=== PATIENT | male | born 1955 | race Caucasian/White ===

== ENCOUNTER 2020-12-04 12:54 | Emergency (ER) | payer OTHER ==
[2020-12-04] MEDS ORDERED: EPINEPHrine 1 MG/10 ML SYR IV ONE (12:55)
[2020-12-04] MEDS ORDERED: Caclcium Chloride 10% INJ SYR IV ONE (12:55)
--- OUTSIDE RECORDS SUMMARY | 2020-12-04 13:02 | XMS REPORT | Continuity of Care Document ---
:1955 Author Organization [facility] t Address [address] [place] [address] Dr. Frias [address] [place] [id number] Care Team Providers Name Role Phone Unavailable Unavailable Unavailable Problems This patient has no known problems. Allergies, Adverse Reactions, Alerts This patient has no known allergies or adverse reactions. Medications This patient has no known medications. Procedures This patient has no known procedures. Results This patient has no known results.
--- NOTE | 2020-12-04 13:14 | EDPHYS ---
Physician Documentation [facility] Name: Jaxson Keating Age: 65 yrs Sex: Male : 1955 Arrival Date: 12/04/2020 Time: 12:58 Bed 3 Private MD: ED Physician Jerrod Ku HPI: 12/04 13:13 This 65 yrs old Male presents to ER via Unassigned with complaints of CPR. jr8 13:13 Preceding the arrest, the patient collapsed. The arrest occurred in a parking lot. jr8 Pre-hospital course: The arrest was witnessed by family. Bystanders at the scene performed CPR. EMS care prior to arrival: oxygen, by BVM to assist ventilations. backboard. The patient has not experienced similar symptoms in the past. It is unknown whether or not the patient has recently seen a physician. [place]. CPR was almost immediately started by family and then taken over by a BLS unit. Patient had a ED on with BVM and IV established with fluids. No other ACLS procedures given upon arrival. EMS stated that they were able to obtain a pulse with a bradycardic rhythm for a brief period of time prior to arrival but then soon lost it. Presumptive downtime was approximately 12:16 PM.. ROS: 13:13 Unable to obtain ROS due to CPR. jr8 Exam: 13:13 Eyes: Pupils fixed and dilated. Lids and lashes normal. Conjunctiva and sclera are jr8 non-icteric and not injected. Cornea within normal limits. Periorbital areas with no swelling, redness, or edema. 13:13 MS/ Extremity: No external signs of trauma on extremities 13:13 Cardiovascular: Patient had a rate of 100 via CPR. Patient will go in between asystole and PEA. 13:13 Respiratory: Breath sounds: bronchial sounds, that are moderate, are heard diffusely. 13:13 Abdomen/GI: Inspection: obese Palpation: soft, in all quadrants. 13:13 Skin: Appearance: Color: dusky, Temperature: cool. Vital Signs: 13:00 Temp 98.6(R); Pulse Ox 90% on ETT ambu; ap3 Coby Coma Score: 13:13 Eye Response: none(1). Verbal Response: none(1). Motor Response: none(1). Modifying jr8 Factors: Intubated. Total: 3. Procedures: 13:10 Intubation: Intubated orally using # 4 Malina blade with 7.5 mm ETT. was successful jr8 on first attempt. Ventilated with Ambu bag. Cricoid pressure applied during procedure. Tube secured with ETT mccray at center of mouth measured 24 cm at lip. Placement verified by CO2 detector with (+) color change, auscultating bilateral breath sounds, O2 saturation after procedure was 100 %. Patient tolerated well. Central Line: the site was prepped with Betadine, in sterile fashion, a triple lumen catheter was inserted, in the right femoral vein, in 1 attempts. placement was verified, by blood return, the site was dressed with 4X4s, Tegaderm, foam tape, using sterile technique. MDM: 13:10 Patient medically screened. jr8 13:10 Data reviewed: vital signs, nurses notes. Counseling: I had a detailed discussion with jr8 the patient and/or guardian regarding: the historical points, exam findings, and any diagnostic results supporting the discharge/admit diagnosis. Administered Medications: 12:53 Drug: Sodium Bicarbonate 1 amp Route: IVP; Site: right hand; ap3 12:54 Drug: Calcium Chloride 10% 10 ml Route: IVP; Site: right hand; ap3 12:55 Drug: EPINEPHrine 0.1mg/mL 1:10,000 1 mg Route: IVP; Site: right hand; ap3 12:58 Drug: EPINEPHrine 0.1mg/mL 1:10,000 1 mg Route: IVP; Site: right femoral; ap3 12:59 Drug: Sodium Bicarbonate 1 amp Route: IVP; Site: right femoral; ap3 13:01 Drug: EPINEPHrine 0.1mg/mL 1:10,000 1 mg Route: IVP; Site: right femoral; ap3 Point of Care Testing: Blood Glucose: 12:56 Blood Glucose: 256 mg/dL; ap3 Ranges: Critical Glucose Levels:Adult <50 mg/dl or >400 mg/dl <40 mg/dl or >180 mg/dl Disposition: 13:10 . jr8 12/05 07:32 Co-signature as Attending Physician, Jerrod Ku MD I agree with the assessment and arielle plan of care. Disposition Summary: 12/04/20 13:13 Patient Location: [employer] jr8 Pronouncing Physician: Marko Huitron jr8 Time of : 13:04 12/04/2020 jr8 Diagnosis - Cardiac arrest, cause unspecified jr8 Signatures: Jerrod Ku MD MD cha Roszak, Josh, PA PA jr8 Nidhi Chen RN RN ap3
--- NOTE | 2020-12-04 15:33 | ER ---
Nurse's Notes [facility] Name: Jaxson Keating Age: 65 yrs Sex: Male : 1955 Arrival Date: 12/04/2020 Time: 12:58 Bed 3 Private MD: Diagnosis: Cardiac arrest, cause unspecified Presentation: 12/04 12:48 Chief complaint: EMS states[place] CPR was initiated ap3 by a nearby civilian. Care prior to arrival: CPR performed by EMS was defibrillated. Compressions began at 12:16. 12:48 Method Of Arrival: EMS: [facility] ap3 12:48 Acuity: TRICIA 1 ap3 12:48 Onset of symptoms was December 04, 2020 at 12:16. ap3 12:48 Care prior to arrival: IV initiated. 20 GA, in the right hand. jd3 Screenin:32 Abuse screen: Denies threats or abuse. Tuberculosis screening: No symptoms or risk ap3 factors identified. Fall Risk None identified. Assessment: 12:48 CPR assessment: unresponsive, pupils fixed \T\ dilated, no respiratory effort, mechanical ap3 ventilation, cyanotic, pulses absent w/ compressions. 12:55 Cardiac rhythm is asystole. ap3 13:01 Cardiac rhythm is PEA. ap3 13:04 Cardiac rhythm is asystole. ap3 13:22 Reassessment: [employer] notified. jd3 Vital Signs: 13:00 Temp 98.6(R); Pulse Ox 90% on ETT ambu; ap3 Coby Coma Score: 13:13 Eye Response: none(1). Verbal Response: none(1). Motor Response: none(1). Modifying jr8 Factors: Intubated. Total: 3. ED Course: 12:51 Intubation: Ventilated with 100% bag valve mask (BVM) prior to procedure. O2 saturation ap3 prior to procedure was 88 %. placed orally. Performed by Marko ALSTON Successful on first attempt. Ventilated with Ambu bag. 12:56 Assisted provider with central line placement. Set up central line tray. Triple lumen ap3 line placed in right femoral. Line placed by Jerrod Ku MD Placement verified by blood return, Dressed with Tegaderm, Was handwashing/sanitizing done immediately prior to procedure? Yes. Was patient positioned to in a way to prevent air embolism? Yes. Was procedure site sterilized? Yes, with chlorhexidine. Was the site allowed to dry? Yes. During the procedure, did the Practitioner(s) maintain a sterile field? Yes. Were unused ports clamped during insertion? Yes. After the procedure, did the Practitioner(s) clean the site and apply a sterile dressing? Yes. 12:58 Patient arrived in ED. arielle 13:10 Marko Huitron PA is PHCP. [facility] 13:10 Jerrod Ku MD is Attending Physician. [facility] 13:12 Marko Huitron PA is Pronouncing Provider. jr8 13:18 Triage completed. ap3 13:21 Nicola Ledesma RN is Primary Nurse. jd3 Administered Medications: 12:53 Drug: Sodium Bicarbonate 1 amp Route: IVP; Site: right hand; ap3 12:54 Drug: Calcium Chloride 10% 10 ml Route: IVP; Site: right hand; ap3 12:55 Drug: EPINEPHrine 0.1mg/mL 1:10,000 1 mg Route: IVP; Site: right hand; ap3 12:58 Drug: EPINEPHrine 0.1mg/mL 1:10,000 1 mg Route: IVP; Site: right femoral; ap3 12:59 Drug: Sodium Bicarbonate 1 amp Route: IVP; Site: right femoral; ap3 13:01 Drug: EPINEPHrine 0.1mg/mL 1:10,000 1 mg Route: IVP; Site: right femoral; ap3 Point of Care Testing: Blood Glucose: 12:56 Blood Glucose: 256 mg/dL; ap3 Ranges: Outcome: 13:04 Outcome Patient jd3 13:04 Patient : Time of 13:04 Pronounced by Marko ALSTON 15:32 Patient left the ED. jd3 Signatures: Jerrod Ku MD MD cha Roszak, Josh, PA PA jr8 Nicola Ledesma RN RN jd3 Nidhi Chen RN RN ap3 Corrections: (The following items were deleted from the chart) 13:30 12:48 CPR assessment: unresponsive, pupils fixed \T\ dilated, no respiratory effort, ap3 mechanical ventilation, pulses absent w/ compressions, ap3 13:30 12:48 Cardiac rhythm is asystole ap3 ap3 13:30 12:48 General: ap3 ap3
[2020-12-04 15:36] VITALS: TEMP 98.6; O2SAT 90
== END 2020-12-04 15:32 ==
LOC: ER 12:54
PROC: 0BH17EZ Insertion of Endotracheal Airway into Trachea, Via Natural or Artificial Opening (ICD-10-PCS; principal; 2020-12-04)
PROC: 5A1935Z Respiratory Ventilation, Less than 24 Consecutive Hours (ICD-10-PCS; 2020-12-04)
PROC: 06HM33Z Insertion of Infusion Device into Right Femoral Vein, Percutaneous Approach (ICD-10-PCS; 2020-12-04)
DX: I46.9 Cardiac arrest, cause unspecified (principal)
CPT/HCPCS: 31500; 92950; 99285; 94002; 36556; J0171; 82947